=== PATIENT | male | born 1985 | race Caucasian/White ===

== ENCOUNTER → 2017-12-15 | Outpatient (CLI) | payer OTHER ==
[~2017-12-15] MED LIST: BACLOFEN 10MG T10 MG PO; BREO ELLIPTA 11 EACH IH; CIPROFLOXACIN500 M1 PO; FLEXERIL PO; FLOMAX0.4 MG PO; MOBIC15 MG PO; NAPROSYN500 MG PO; NASONEX17 GM; NORCO 5-325 TA1 EACH PO; PERCOCET 5-3251 EACH PO; PHENERGAN 25 MG25 M1 PO; PRILOSEC; PRILOSEC40 MG PO; PROAIR HFA8.5 GM IH; SYMBICORT; TRAMADOL 50 MG50 MG PO; VALACYCLOVIR500 MG PO; VICODIN 5-5001 EACH PO; ZANTAC 150MG T150 MG PO; ZOFRAN4 MG PO
--- NOTE | 2018-01-08 10:51 | SLEEP ---
[address] [address] SLEEP STUDY REPORT Name: MATIAS HOLMAN Room: [facility]#: [id number] Admission: 12/15/17 Attend Phys: Gretchen Nguyen Discharge: Date of : 85 Report #: [id number] THIS REPORT FOR: //name// CC: Gretchen Lora This study has been reviewed in its entirety by a board certified sleep specialist REFERRING PHYSICIAN: АННА Jeffries. TYPE OF STUDY: Home sleep apnea test. INDICATION: Snoring. This is a home sleep apnea test with a total recording time 437.8 minutes. During the study, the patient had 38 episodes of hypopneas and 4 episodes of obstructive apneas, no central apneas were recorded. The overall apnea-hypopnea index was 5.9. The study was recorded exclusively in the right lateral position. During the study, the average O2 saturation was 94%. The lowest O2 saturation recorded was 83%. The average heart rate was 69.6 per minute and mild snoring was recorded. IMPRESSION: The above home sleep apnea test confirms the presence of obstructive sleep apnea of mild degree, with apnea-hypopnea index of 5.9 and oxygen saturation to a scarlett of 83%. Please note the above apnea-hypopnea index could be an underestimate given the nature of the home sleep apnea test and fact that the patient was not captured during supine sleep. RECOMMENDATIONS: Options for treating mild obstructive sleep apnea includes mandibular advancement device, CPAP titration study and CPAP therapy. Also recommend maintaining ideal body weight. <ELECTRONICALLY SIGNED> By: Mitch Falk MD 01/08/18 1051 0944 1015Nat Gerardo MD /nt
== END ==
LOC: M.SLEEPLAB 15:00
DX: R06.83 Snoring (principal); R40.0 Somnolence

== ENCOUNTER 2018-08-30 21:51 | Emergency (ER) | payer OTHER ==
[~2018-08-30] VITALS: Ht 170.2 cm; Wt 86.2 kg
[2018-08-30] MEDS ORDERED: MOBIC15 MG (22:03)
[2018-08-30] MEDS ORDERED: SYMBICORT160 MCG/4. (22:04)
[2018-08-30 22:55] LABS: ABSOLUTE BASOPHILS 0.1 thou/uL (0.0-0.2); ABSOLUTE EOSINOPHILS 0.1 thou/uL (0.0-0.7); ABSOLUTE MONOCYTES 0.7 thou/uL (0.0-1.2); ABSOLUTE NEUTROPHILS 4.2 thou/uL (1.6-8.1); BASOPHILS 0.9 %; EOSINOPHILS 1.4 %; HEMATOCRIT 40.7 % (42.0-52.0); HEMOGLOBIN 12.9 gm/dL (14.0-18.0); LYMPHOCYTES 36.8 %; MCHC 31.8 g/dL (28.0-37.0); MCV 72.3 fL (80.0-100.0); MPV 7.5 fl. (7.2-11.1); NUCLEATED RBCS 0 /100WBC; PLATELET COUNT* 308 thou/uL (150-400); POLYS 51.9 %; RBC 5.63 mil/uL (4.50-6.00); RDW-CV 13.7 % (10.5-14.5); WBC 8.1 thou/uL (4.0-11.0)
[2018-08-30 23:12] LABS: ANION GAP 8 mmol/L (7-16); BUN 21 mg/dL (7-18); CALCIUM 8.9 mg/dL (8.5-10.1); CHLORIDE 104 mmol/L (98-107); CO2 26 mmol/L (21-32); CREATININE 0.8 mg/dL (0.6-1.3); GLUCOSE 111 mg/dL (70-99); SODIUM 138 mmol/L (136-145)
[2018-08-30 23:19] LABS: ALBUMIN 3.9 g/dL (3.4-5.0); ALKALINE PHOSPHATASE 99 U/L (46-116); SGOT 11 U/L (15-37); SGPT 42 U/L (30-65); TOTAL BILIRUBIN 0.1 mg/dL (<0.1-1.0); TOTAL PROTEIN 7.3 g/dL (6.4-8.2); TROPONIN-I LEVEL <0.06 ng/mL (<0.06)
[2018-08-30 23:41] VITALS: BP 138/75
--- NOTE | 2018-08-31 13:21 | EKG ---
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
== END 2018-08-30 23:41 | disposition home or self-care (01) ==
LOC: M.ERS 21:51
PROVIDERS: Physician Assistant
DX: M25.512 Pain in left shoulder (principal); K21.9 Gastro-esophageal reflux disease without esophagitis; J45.909 Unspecified asthma, uncomplicated; M19.90 Unspecified osteoarthritis, unspecified site; F17.210 Nicotine dependence, cigarettes, uncomplicated; Z87.442 Personal history of urinary calculi

== ENCOUNTER 2019-07-26 18:40 | Emergency (ER) | payer OTHER ==
[~2019-07-26] VITALS: Ht 170.2 cm; Wt 88.0 kg
[~2019-07-26 18:40] MED LIST changes: +MOBIC15 MG; +SYMBICORT160 MCG/4.
[2019-07-26 19:37] LABS: ABSOLUTE BASOPHILS 0.1 thou/uL (0.0-0.2); ABSOLUTE EOSINOPHILS 0.1 thou/uL (0.0-0.7); ABSOLUTE LYMPHOCYTES 2.5 thou/uL (0.8-5.3); ABSOLUTE MONOCYTES 0.6 thou/uL (0.0-1.2); ABSOLUTE NEUTROPHILS 3.5 thou/uL (1.6-8.1); EOSINOPHILS 1.7 %; HEMATOCRIT 39.8 % (42.0-52.0); HEMOGLOBIN 12.9 gm/dL (14.0-18.0); LYMPHOCYTES 37.3 %; MCH 23.1 pg (26.0-34.0); MCHC 32.3 g/dL (28.0-37.0); MCV 71.5 fL (80.0-100.0); MONOCYTES 8.4 %; MPV 7.4 fl. (7.2-11.1); NUCLEATED RBCS 0 /100WBC; PLATELET COUNT* 323 thou/uL (150-400); POLYS 51.6 %; RBC 5.56 mil/uL (4.50-6.00); RDW-CV 13.8 % (10.5-14.5); WBC 6.8 thou/uL (4.0-11.0)
[2019-07-26 19:44] LABS: PROTIME 9.9 Seconds (9.20-11.50)
[2019-07-26 19:47] LABS: ANION GAP 8 mmol/L (7-16); BUN 16 mg/dL (7-18); CALCIUM 9.2 mg/dL (8.5-10.1); CHLORIDE 103 mmol/L (98-107); CO2 29 mmol/L (21-32); GLUCOSE 114 mg/dL (70-99); POTASSIUM 3.5 mmol/L (3.5-5.1); SODIUM 140 mmol/L (136-145)
[2019-07-26 19:55] LABS: ANISOCYTOSIS 1+; MICROCYTES 1+; PLATELET ESTIMATE ADEQUATE
[2019-07-26 19:57] LABS: ALBUMIN 4.3 g/dL (3.4-5.0); ALKALINE PHOSPHATASE 106 U/L (46-116); LIPASE 161 U/L (73-393); NT-PRO BRAIN NAT PEPTIDE < 5 pg/mL (<300); SGOT 16 U/L (15-37); SGPT 46 U/L (30-65); TOTAL BILIRUBIN 0.2 mg/dL (<0.1-1.0); TOTAL PROTEIN 7.7 g/dL (6.4-8.2)
[2019-07-26 20:17] LABS: URINE BILIRUBIN NEGATIVE (Negative); URINE BLOOD NEGATIVE (Negative); URINE CLARITY CLEAR; URINE COLOR YELLOW; URINE GLUCOSE-RANDOM NEGATIVE (Negative); URINE KETONES NEGATIVE (Negative); URINE LEUKOCYTES-REFLEX NEGATIVE (Negative); URINE NITRITE-REFLEX NEGATIVE (Negative); URINE PROTEIN NEGATIVE (Negative); URINE SPECIFIC GRAVITY <= 1.005 (1.005-1.030); URINE UROBILINOGEN 0.2 E.U./dl (0.2-1.0)
[2019-07-26] MEDS ORDERED: ZOFRAN ODT4 MG PO (22:00)
[2019-07-26 22:10] VITALS: BP 136/87
--- NOTE | 2019-07-27 17:16 | EKG ---
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
== END 2019-07-26 22:11 | disposition home or self-care (01) ==
LOC: M.ERS 18:40
PROVIDERS: Emergency Medicine
DX: R42 Dizziness and giddiness (principal); J45.909 Unspecified asthma, uncomplicated; K21.9 Gastro-esophageal reflux disease without esophagitis; M19.90 Unspecified osteoarthritis, unspecified site; F17.210 Nicotine dependence, cigarettes, uncomplicated; Z87.442 Personal history of urinary calculi

== ENCOUNTER → 2020-05-15 | Outpatient (CLI) | payer OTHER ==
[~2020-05-15] MED LIST changes: +ZOFRAN ODT4 MG PO
== END ==
LOC: M.ULTRA 14:00
PROVIDERS: ATTEND Family Medicine
DX: N50.3 Cyst of epididymis (principal); N43.3 Hydrocele, unspecified

== ENCOUNTER 2020-10-25 10:01 | Emergency (ER) | payer OTHER ==
[~2020-10-25] VITALS: Ht 170.2 cm; Wt 72.1 kg
[2020-10-25] MEDS ORDERED: NORCO 10-325 T1 EACH PO (10:10)
[2020-10-25] MEDS ORDERED: MUSCLE RELAXER (10:10)
[2020-10-25 10:23] LABS: HEMOGLOBIN 13.2 gm/dL (14.0-18.0); MCH 23.1 pg (26.0-34.0); MCHC 32.2 g/dL (28.0-37.0); MCV 71.7 fL (80.0-100.0); NUCLEATED RBCS 0 /100WBC; RBC 5.72 mil/uL (4.50-6.00)
[2020-10-25 10:25] LABS: ABSOLUTE BASOPHILS 0.1 thou/uL (0.0-0.2); ABSOLUTE LYMPHOCYTES 1.1 thou/uL (0.8-5.3); ABSOLUTE MONOCYTES 0.7 thou/uL (0.0-1.2); BASOPHILS 0.5 %; EOSINOPHILS 0.3 %; LYMPHOCYTES 11.5 %; MONOCYTES 7.1 %; MPV 6.6 fl. (7.2-11.1); PLATELET COUNT* 344 thou/uL (150-400); POLYS 80.6 %; RDW-CV 14.6 % (10.5-14.5); WBC 9.9 thou/uL (4.0-11.0)
[2020-10-25 10:32] LABS: ANION GAP 6 mmol/L (7-16); BUN 23 mg/dL (7-18); CALCIUM 8.6 mg/dL (8.5-10.1); CHLORIDE 105 mmol/L (98-107); CO2 30 mmol/L (21-32); CREATININE 0.9 mg/dL (0.6-1.3); GLUCOSE 96 mg/dL (70-99); POTASSIUM 3.8 mmol/L (3.5-5.1); SODIUM 141 mmol/L (136-145)
[2020-10-25 10:41] LABS: APTT 23.9 Seconds (25.0-31.3); PROTIME 9.8 Seconds (9.20-11.50)
[2020-10-25 10:47] LABS: ALKALINE PHOSPHATASE 74 U/L (46-116); CK-MB MASS < 0.5 ng/mL (<0.5-3.6); LIPASE 125 U/L (73-393); MAGNESIUM 2.1 mg/dL (1.8-2.4); NT-PRO BRAIN NAT PEPTIDE 46 pg/mL (<300); SGOT 9 U/L (15-37); SGPT 24 U/L (30-65); TOTAL BILIRUBIN 0.3 mg/dL (<0.1-1.0); TOTAL PROTEIN 7.3 g/dL (6.4-8.2)
[2020-10-25 10:59] VITALS: BP 141/88
--- NOTE | 2020-10-26 09:02 | EKG ---
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[facility] : 1985 Requested By: Johnny Santiago Order Number: [id number] MD: Jack Brooks Measurements Intervals [place] Rate: 72 P: 39 FL: 138 QRS: 24 QRSD: 83 T: 47 QT: 367 QTc: 402 Interpretive Statements Sinus rhythm Compared to ECG 07/26/2019 19:19:11 No significant changes Electronically Signed On 10-26-2020 9:01:53 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
== END 2020-10-25 11:00 | disposition home or self-care (01) ==
LOC: M.ERS 10:01
PROVIDERS: Family Medicine
DX: R07.89 Other chest pain (principal); K21.9 Gastro-esophageal reflux disease without esophagitis; J45.909 Unspecified asthma, uncomplicated; M19.90 Unspecified osteoarthritis, unspecified site; F17.210 Nicotine dependence, cigarettes, uncomplicated; Z87.442 Personal history of urinary calculi

== ENCOUNTER 2021-07-24 07:44 | Emergency (ER) | payer OTHER ==
[~2021-07-24] VITALS: Ht 170.2 cm; Wt 85.0 kg
[~2021-07-24 07:44] MED LIST changes: +MUSCLE RELAXER; +NORCO 10-325 T1 EACH PO
[2021-07-24] MEDS ORDERED: HYDROCODON-ACE1 EAC7 PO (08:31)
[2021-07-24] MEDS ORDERED: FLEXERIL PO (08:31)
[2021-07-24 09:00] VITALS: BP 118/80
== END 2021-07-24 09:01 | disposition home or self-care (01) ==
LOC: M.ERS 07:44
DX: M54.6 Pain in thoracic spine (principal); K21.9 Gastro-esophageal reflux disease without esophagitis; J45.909 Unspecified asthma, uncomplicated; M19.90 Unspecified osteoarthritis, unspecified site; F17.210 Nicotine dependence, cigarettes, uncomplicated; Z87.442 Personal history of urinary calculi; Z79.899 Other long term (current) drug therapy